=== PATIENT | male | born 1965 | race African-American/Black ===

== ENCOUNTER 2016-09-18 09:04 | Emergency (ER) | payer OTHER ==
--- NOTE | ~2016-09-18 | CR94 ---
[facility] A Service of [facility] & [facility] RADIOLOGY TEXT RESULTS PATIENT: LISET CHILEL LOCATION: [facility] : 67 UNIT #: [id number] AGE: [address]: Diana Stapleton APRN SEX: M ORDER DR: [id number] [facility] [address] [place], [place] [address] [id number] E MR#: [id number] Acc #: [id number] NAME: LISET CHILEL. : 1965 SEX: M STUDY DATE/TIME: 09/18/2016 7:56 UNIT: [facility] ROOM: STUDY DESCRIPTION: CR Elbow Min 3 Views Rt Attending Physician: Diana Stapleton A.P.R.N. Ordering Physician: Ed Doctor [id number] [facility] Primary Care Physician: Jadiel Hansen M.D. MEDICAL IMAGING REPORT This report is preliminary unless electronic signature is present EXAM Right elbow series 3 views 09/18/2016 INDICATION Contusion, hit elbow on a wall 2 days ago. Pain and swelling. TECHNIQUE 3 views of the right elbow. We have no comparisons. FINDINGS Mild soft tissue swelling about the olecranon. Mild degenerative change in the right elbow. No joint effusion or acute fracture. No retained opaque foreign body. IMPRESSION Mild soft tissue swelling and degenerative change. Otherwise negative. Dictated by... Joni Bruner M.D. THIS IS AN ELECTRONICALLY VERIFIED REPORT Joni Bruner M.D. at 09/18/2016 2:23 PM Fina TD: 09/18/2016 14:06 JOB #: [id number] MEDICAL IMAGING REPORT COPY
[~2016-09-18 09:04] MED LIST: AMOXICILLIN PO; ANTIDEPRESSANT; ARTHRITIS MED; BACTRIM DS TABL1 TA1 PO; BUPROPION XL150 MG; CIPRO PO; FLEXERIL10 MG; FLEXERIL10 MG PO; GABAPENTIN300 M2; IBUPROFEN PO; IBUPROFEN400 MG PO; KEFLEX500 MG PO; LORTAB 5/500 TA1 TA1 PO; MEDROL DOSEPAK4 MG PO; MOTRIN20 MG/ML PO; NAPROXEN PO; NO MEDICATIONS; PREDNISONE10 MG/DOSE PO; ULTRAM PO; VENLAFAXINE H37.5 M2; VOLTAREN50 MG PO
== END 2016-09-18 10:50 | disposition home or self-care (01) ==
LOC: CED 09:04
DX: S50.01XA Contusion of right elbow, initial encounter (principal); F17.210 Nicotine dependence, cigarettes, uncomplicated; I48.91 Unspecified atrial fibrillation; L72.3 Sebaceous cyst; W22.8XXA Striking against or struck by other objects, initial encounter; Y92.009 Unspecified place in unspecified non-institutional (private) residence as the place of occurrence of the external cause
CPT/HCPCS: 10060; 73080; 99283

== ENCOUNTER 2016-11-29 18:53 | Emergency (ER) | payer OTHER ==
--- NOTE | ~2016-11-29 | CT98 ---
[facility] A Service of [facility] & [facility] RADIOLOGY TEXT RESULTS PATIENT: LISET CHLIEL LOCATION: [place] : 67 UNIT #: [id number] AGE: [address]: PAKO TAN APRN SEX: M ORDER DR: [id number] [facility] [address] [place], [place] [address] [id number] E MR#: [id number] Acc #: [id number] NAME: LISET CHILEL. : 1965 SEX: M STUDY DATE/TIME: 11/29/2016 21:11 UNIT: [facility] ROOM: STUDY DESCRIPTION: CT Lumbar Spine Wo Cont Attending Physician: Pako Tan Aprn Ordering Physician: Pako Tan Aprn Primary Care Physician: Jadiel Hansen M.D. MEDICAL IMAGING REPORT This report is preliminary unless electronic signature is present EXAM Lumbar spine CT, 11/29. INDICATION Low back pain after a fall today. Remote history of back trauma. TECHNIQUE Axial noncontrast images were obtained through the lumbar spine. multiplanar reformats were obtained. No comparison. This CT exam was performed with one or more of the following radiation dose reduction techniques: automatic exposure control, adjustment of mA and/or kV according to patient size, and iterative reconstruction. FINDINGS There are bilateral L5 pars defects. No acute fractures are seen. There is subtle anterolisthesis of L5 on S1. Alignment is, otherwise, normal. Chronic anterior loss of height is noted at L5, probably from remote trauma. At L5-S1, there is a broad-based disc bulge which results in [id number] bilateral foraminal narrowing. Disc material is probably contacting both S1 roots. There is ligamentum flavum hypertrophy at this level as well, which serves to additionally narrow the central canal. At L4-5, there is facet arthropathy and ligamentum flavum hypertrophy. There is a broad-based posterior disc bulge with mild central canal narrowing and bilateral foraminal stenosis. At L3-4, broad-based posterior disc bulge is seen with some mild facet hypertrophy and ligamentum flavum hypertrophy. There is mild narrowing at both foramina, but no significant central stenosis. STS. [facility] A Service of [facility] & [facility] RADIOLOGY TEXT RESULTS PATIENT: LISET CHILEL LOCATION: [facility] : 67 UNIT #: [id number] AGE: [address]: PAKO TAN APRN SEX: M ORDER DR: At L2-3, there is some mild facet disease. Minimal disc bulge is seen without central canal or significant foraminal stenosis. At L1-2, minimal disc bulge without central canal or foraminal narrowing. At T12-L1, the disc is within normal limits. IMPRESSION 1. No acute fractures. 2. Bilateral L5 pars defects with subtle L5-S1 spondylolisthesis. 3. Multilevel degenerative disc disease and facet arthropathy as detailed above. There is a broad-based disc bulge at L5-S1 which contacts the S1 nerve roots. There is central canal and bilateral foraminal narrowing at this level. There is also a broad-based bulge at L4-5 with bilateral foraminal stenosis. Additional findings as above. ADDENDUM Partially seen is a nonobstructing stone in the lower pole of the left kidney. Dictated by... Brody Disla Jr., M.D. THIS IS AN ELECTRONICALLY VERIFIED REPORT Brody Disla Jr., M.D. at 11/30/2016 12:59 PM SAHIL/ben TD: 11/29/2016 23:43 JOB #: [id number] MEDICAL IMAGING REPORT Page 1 of 1 COPY
== END 2016-11-29 23:00 | disposition home or self-care (01) ==
LOC: CED 18:53 → CFTX 18:53
DX: M54.42 Lumbago with sciatica, left side (principal); I48.92 Unspecified atrial flutter; M51.36 Other intervertebral disc degeneration, lumbar region; F17.210 Nicotine dependence, cigarettes, uncomplicated; Z88.8 Allergy status to other drugs, medicaments and biological substances
CPT/HCPCS: 72131; 99284